=== PATIENT | female | born 1970 | race Caucasian/White ===

== ENCOUNTER 2017-08-10 06:22 | Day surgery (SDC) | payer OTHER ==
[~2017-08-10] VITALS: Ht 162.6 cm; Wt 60.8 kg
[2017-08-10] MEDS ORDERED: IBUPROFEN 800 MG TAB PO PRN (08:00)
[2017-08-10] MEDS ORDERED: MORPHINE SULFATE 4 MG/ML SYR IM/IVP PRN (08:00)
[2017-08-10] MEDS ORDERED: ACETAMINOPHEN/CODEINE 300/30MG 1 TAB PO PRN (08:00)
[2017-08-10] MEDS ORDERED: FERR325E14 PO (08:01)
[2017-08-10] MEDS ORDERED: SYN.1 PO (08:01)
[2017-08-10] MEDS ORDERED: FOLIC ACID PO (08:01)
[2017-08-10] MEDS ORDERED: PROPOFOL 200 MG/20 ML VIAL IV ONE (08:52)
[2017-08-10] MEDS ORDERED: MIDAZOLAM 2 MG/2 ML VIAL ONE (09:02)
[2017-08-10] MEDS ORDERED: fentaNYL 0.05 MG/ML VIAL ONE (09:02)
[2017-08-10] MEDS ORDERED: MORPHINE SULFATE 4 MG/ML SYR IVP PRN ×2 (09:20)
[2017-08-10] MEDS ORDERED: MORPHINE SULFATE 2 MG/ML SYR IVP PRN (09:20)
[2017-08-10] MEDS ORDERED: MIDAZOLAM 2 MG/2 ML VIAL IV SCH (09:30)
== END 2017-08-10 12:32 | disposition home or self-care (01) ==
LOC: MDS 06:22 → MMU 06:22 → MDS 12:32
PROVIDERS: ATTEND Obstetrics & Gynecology
DX: N92.1 Excessive and frequent menstruation with irregular cycle (principal); D64.9 Anemia, unspecified; E05.90 Thyrotoxicosis, unspecified without thyrotoxic crisis or storm; Z98.890 Other specified postprocedural states; Z79.899 Other long term (current) drug therapy; Z90.49 Acquired absence of other specified parts of digestive tract; Z98.51 Tubal ligation status
CPT/HCPCS: 58120; 88305; J2250; J2704; J3010; J7120